=== PATIENT | female | born 1940 | race Caucasian/White ===

== ENCOUNTER 2019-09-05 08:28 | Day surgery (SDC) | payer MEDICARE, BC ==
[~2019-09-05] VITALS: Ht 182.9 cm; Wt 86.3 kg
[2019-09-05] MEDS ORDERED: LACTATED RINGERS 1,000 ML IV SCH (08:54)
[2019-09-05] MEDS ORDERED: LIDOCAINE-MPF 1%, 2ML INFIL ONE (09:00)
[2019-09-05] MEDS ORDERED: IBUP-1221 PO (09:19)
[2019-09-05] MEDS ORDERED: ATEN25TA PO (09:19)
[2019-09-05] MEDS ORDERED: GLIP-142 PO (09:19)
[2019-09-05] MEDS ORDERED: OMEP-110 PO (09:19)
[2019-09-05] MEDS ORDERED: TRAM50TA2 PO (09:19)
[2019-09-05] MEDS ORDERED: IBUP1TAB PO (09:19)
[2019-09-05] MEDS ORDERED: ASPI-496 PO (09:19)
[2019-09-05] MEDS ORDERED: HYDR12.517 PO (09:19)
[2019-09-05] MEDS ORDERED: DIGO250T3 PO (09:19)
[2019-09-05] MEDS ORDERED: LISI-170 PO (09:19)
[2019-09-05] MEDS ORDERED: FAMOTIDINE 20 MG TABLET PO ONE (09:30)
[2019-09-05] MEDS ORDERED: SCOPOLAMINE 1MG PATCH TD SCH (09:30)
[2019-09-05] MEDS ORDERED: CEFOTETAN PMX 2GM/50ML 50 ML IV ONE (09:30)
[2019-09-05] MEDS ORDERED: PLEASE ENTER HEIGHT AND WEIGHT MC SCH (09:30)
[2019-09-05 09:35] VITALS: BP 132/74
[2019-09-05 09:47] LABS: INTERNATIONAL NORMALIZED RATIO 1.14 (0.93-1.1); PROTHROMBIN TIME 12.1 Seconds (9.6-11.5)
[2019-09-05] MEDS ORDERED: HYDROmorphone 2 MG/ML, 1ML IVPush PRN (10:00)
[2019-09-05] MEDS ORDERED: KETOROLAC 30 MG/1 ML IV PRN (10:00)
[2019-09-05] MEDS ORDERED: ALBUTEROL/IPRATROPIUM 2.5MG/0.5MG, 3 ML NPPB PRN (10:00)
[2019-09-05] MEDS ORDERED: LABETALOL 5MG/ML, 20ML IV PRN (10:00)
[2019-09-05] MEDS ORDERED: MIDAZOLAM 1 MG/ML, 2ML IV PRN (10:00)
[2019-09-05] MEDS ORDERED: OXYcodone 5 MG/5 ML ORAL.SOL UDC PO PRN ×2 (10:00→22:30)
[2019-09-05] MEDS ORDERED: ONDANSETRON ODT 8 MG PO PRN (10:00)
[2019-09-05] MEDS ORDERED: HYDROcodone/APAP 7.5-325MG/15ML UDC PO PRN (10:00)
[2019-09-05] MEDS ORDERED: hydrALAzine 20 MG/ML, 1ML IV PRN (10:00)
[2019-09-05] MEDS ORDERED: DIPHENHYDRAMINE 50 MG/ML, 1ML IVPush PRN ×2 (10:00)
[2019-09-05] MEDS ORDERED: EPHEDRINE 50 MG/ML, 1ML IVPush PRN (10:00)
[2019-09-05] MEDS ORDERED: MORPHINE SULFATE 4 MG/ML, 1ML IVPush PRN (10:00)
[2019-09-05] MEDS ORDERED: MEPERIDINE/PF 25MG/ML,1ML IVPush PRN (10:00)
[2019-09-05] MEDS ORDERED: METOCLOPRAMIDE 5 MG/ML, 2ML IV PRN (10:00)
[2019-09-05] MEDS ORDERED: EPHEDRINE 50 MG/ML, 1ML IM PRN (10:00)
[2019-09-05] MEDS ORDERED: DEXAMETHASONE 4 MG/ML, 1ML ONE (10:03)
[2019-09-05] MEDS ORDERED: MIDAZOLAM 1 MG/ML, 2ML ONE ×2 (10:03→14:15)
[2019-09-05] MEDS ORDERED: ROCURONIUM 10MG/ML,5ML ONE (10:03)
[2019-09-05] MEDS ORDERED: PROPOFOL 10 MG/ML, 20ML ONE (10:03)
[2019-09-05] MEDS ORDERED: FENTANYL PF 250 MCG/5ML ONE (10:03)
[2019-09-05] MEDS ORDERED: GLYCOPYRROLATE 0.2MG/1ML, 5ML ONE (10:03)
[2019-09-05] MEDS ORDERED: LIDOCAINE-MPF 2% ,5ML ONE (10:03)
[2019-09-05] MEDS ORDERED: HEPARIN 1,000 UNITS/ML, 10ML ONE (11:02)
[2019-09-05] MEDS ORDERED: INDOCYANINE GREEN 25 MG VIAL ONE (11:02)
[2019-09-05] MEDS ORDERED: ONDANSETRON 2MG/ML, 2ML ONE (11:27)
[2019-09-05] MEDS ORDERED: LABETALOL 5MG/ML, 20ML ONE (11:32)
[2019-09-05] MEDS ORDERED: LIDOCAINE 1%, 20ML ONE (11:32)
[2019-09-05] MEDS ORDERED: MAGNESIUM SULFATE 1 GM/2 ML ONE (11:32)
[2019-09-05] MEDS ORDERED: ROPIvacaine/PF 0.5%, 30 ML ONE (12:55)
[2019-09-05] MEDS ORDERED: OXYcodone 5 MG/5 ML ORAL.SOL UDC ONE (14:16)
[2019-09-05] MEDS ORDERED: FENTANYL PF 100 MCG/2ML ONE (14:44)
[2019-09-05] MEDS: FENTANYL PF 100 MCG/2ML IV PRN ×2 (14:44→14:50)
[2019-09-05] MEDS ORDERED: ONDANSETRON 2MG/ML, 2ML IVPush PRN (22:30)
[2019-09-05] MEDS ORDERED: IBUPROFEN 200 MG TABLET PO PRN (22:30)
[2019-09-05] MEDS ORDERED: morphine SULFATE 10 MG/ML, 1ML IVPush PRN (22:30)
== END 2019-09-05 22:30 | disposition home or self-care (01) ==
LOC: OUT 08:28 → 4NW 19:00 → OUT 22:30 → UNDOADMOB 09-06 00:14 → 4NW 09-06 00:14
PROVIDERS: ATTEND Obstetrics & Gynecology
DX: D27.1 Benign neoplasm of left ovary (principal); D27.0 Benign neoplasm of right ovary; N73.6 Female pelvic peritoneal adhesions (postinfective); E11.9 Type 2 diabetes mellitus without complications; I10 Essential (primary) hypertension; M10.9 Gout, unspecified; I48.0 Paroxysmal atrial fibrillation; M19.90 Unspecified osteoarthritis, unspecified site; Z88.5 Allergy status to narcotic agent; Z79.82 Long term (current) use of aspirin; Z96.641 Presence of right artificial hip joint; Z98.890 Other specified postprocedural states; Z88.0 Allergy status to penicillin; Z88.2 Allergy status to sulfonamides; Z79.899 Other long term (current) drug therapy; Z90.710 Acquired absence of both cervix and uterus
CPT/HCPCS: 36415; 58661; 82962; 85610; 85730; 86850; 86900; 86923; 88112; 88305; 88331; J1100; J2250; J2405; J2704; J2795; J3010; J3475; J3490; J7120; G0378; J1644